=== PATIENT | male | born 1950 | race Caucasian/White ===

== ENCOUNTER 2020-07-02 00:14 | Day surgery (SDC) | payer MEDICARE ==
[~2020-07-02 00:14] MED LIST: BP MED; OXYACE5T PO; RXOXYACE PO
[2020-07-02] MEDS ORDERED: CENTRUM SILVER1 EAC2 PO (11:09)
[2020-07-02] MEDS ORDERED: Prinivil10 MG (11:09)
== END 2020-07-02 11:30 | disposition home or self-care (01) ==
LOC: ATC 00:14
DX: M86.8X7 Other osteomyelitis, ankle and foot (principal); A41.9 Sepsis, unspecified organism; I10 Essential (primary) hypertension; Z20.828 Contact with and (suspected) exposure to other viral communicable diseases; Z87.891 Personal history of nicotine dependence; Z88.0 Allergy status to penicillin; Z79.899 Other long term (current) drug therapy
CPT/HCPCS: 96365; J0696

== ENCOUNTER 2020-07-03 10:23 | Day surgery (SDC) | payer MEDICARE ==
[~2020-07-03 10:23] MED LIST changes: +CENTRUM SILVER1 EAC2 PO; +Prinivil10 MG
== END 2020-07-03 11:30 | disposition home or self-care (01) ==
LOC: ATC 10:23
DX: M86.8X7 Other osteomyelitis, ankle and foot (principal); I10 Essential (primary) hypertension; Z87.891 Personal history of nicotine dependence; Z88.0 Allergy status to penicillin; Z79.899 Other long term (current) drug therapy
CPT/HCPCS: 96365; J0696

== ENCOUNTER 2020-07-04 00:36 | Day surgery (SDC) | payer MEDICARE ==
[2020-07-04 14:15] LABS: Hemoglobin 14.9 g/dL (13.5-17.5); Mean Corpuscular HGB 31.4 pg (26.0-34.0); Mean Corpuscular HGB Conc 33.1 g/dL (31.5-36.5); Mean Corpuscular Volume 95 fL (80-100); Mean Platelet Volume 9.1 fL (9.1-12.4); Platelet Count 426 K/mm3 (150-400); RDW Coefficient Variation 12.2 % (11.7-14.2); RDW Standard Deviation 42.9 fL (35.1-46.3); Red Blood Cell Count 4.74 M/mm3 (4.30-5.90)
[2020-07-04 14:37] LABS: Alanine Aminotransfer (ALT/SGP 89 U/L (12-78); Albumin, Blood 3.1 g/dL (3.4-5.0); Albumin/Globulin Ratio 0.7 (0.8-1.8); Alk Phos 59 U/L (50-136); Anion Gap 8 mmol/L (6-16); Aspartate Aminotrans (AST/SGOT 39 U/L (12-37); Bilirubin, Total 0.4 mg/dL (0.1-1.0); Blood Urea Nitrogen 15 mg/dL (8-24); Bun/Creatinine Ratio 17.8 (12.0-20.0); CO2, Blood 27 mmol/L (21-32); Calcium, Blood 9.1 mg/dL (8.5-10.1); Chloride, Blood 104 mmol/L (98-108); Creatinine, Blood 0.84 mg/dL (0.60-1.20); Globulin, Blood 4.7 g/dL (2.2-4.0); Glomerular Filtration Rate >60 (60-); Glucose, Blood 109 mg/dL (70-99); Potassium, Blood 4.3 mmol/L (3.5-5.5); Sodium, Blood 139 mmol/L (136-145); Total Protein, Blood 7.8 g/dL (6.4-8.2)
[2020-07-04 14:38] LABS: BAND PERCENT MAN 2 % (0-8); BASOPHILS ABSOLUTE MAN 0.11 K/mm3 (0.00-0.23); BASOPHILS PERCENT MAN 1 % (0-2); EOSINOPHILS ABSOLUTE MAN 0.22 K/mm3 (0.00-0.68); EOSINOPHILS PERCENT MAN 2 % (0-6); LYMPHOCYTES ABSOLUTE MAN 2.55 K/mm3 (0.84-5.20); LYMPHOCYTES PERCENT MAN 23 % (21-46); MONOCYTES ABSOLUTE MAN 0.55 K/mm3 (0.16-1.47); MONOCYTES PERCENT MAN 5 % (4-13); MYELOCYTE ABSOLUTE MAN 0.22 K/mm3 (0.00-0.00); MYELOCYTE PERCENT MAN 2 % (0-0); NEUTROPHILS ABSOLUTE MAN 7.43 K/mm3 (1.96-9.15); SEG NEUTROPHILS PERCENT MAN 65 % (41-73); TOTAL CELLS COUNTED 100
[2020-07-05] MEDS ORDERED: CEFTRIAXON2 GM/50 M1 IV (09:39)
== END 2020-07-04 14:22 | disposition home or self-care (01) ==
LOC: ATC 00:36
PROVIDERS: Internal Medicine Infectious Disease
DX: M86.9 Osteomyelitis, unspecified (principal); I10 Essential (primary) hypertension; Z88.0 Allergy status to penicillin; Z79.899 Other long term (current) drug therapy
CPT/HCPCS: 36592; 80053; 85025; 85651; 86140; 96365; J0696

== ENCOUNTER 2020-07-05 00:10 | Day surgery (SDC) | payer MEDICARE ==
[2020-07-05] MEDS ORDERED: CEFTRIAXON2 GM/50 M1 IV (09:39)
== END 2020-07-05 09:32 | disposition home or self-care (01) ==
LOC: ATC 00:10
DX: M86.8X7 Other osteomyelitis, ankle and foot (principal); I10 Essential (primary) hypertension; Z88.0 Allergy status to penicillin; Z79.899 Other long term (current) drug therapy
CPT/HCPCS: 96365; J0696

== ENCOUNTER 2020-07-06 00:12 | Day surgery (SDC) | payer MEDICARE ==
[~2020-07-06 00:12] MED LIST changes: +CEFTRIAXON2 GM/50 M1 IV
== END 2020-07-06 09:25 | disposition home or self-care (01) ==
LOC: ATC 00:12
DX: M86.8X7 Other osteomyelitis, ankle and foot (principal); I10 Essential (primary) hypertension; Z88.0 Allergy status to penicillin; Z79.899 Other long term (current) drug therapy
CPT/HCPCS: 96365; J0696

== ENCOUNTER 2020-07-08 00:10 | Day surgery (SDC) | payer MEDICARE | END 2020-07-08 08:34 | disposition home or self-care (01) | LOC: ATC 00:10 | DX: M86.8X7 Other osteomyelitis, ankle and foot (principal); A41.9 Sepsis, unspecified organism; I10 Essential (primary) hypertension; Z87.891 Personal history of nicotine dependence; Z88.0 Allergy status to penicillin; Z79.899 Other long term (current) drug therapy | CPT/HCPCS: 96365; J0696 ==

== ENCOUNTER 2020-07-09 00:24 | Day surgery (SDC) | payer MEDICARE | END 2020-07-09 10:25 | disposition home or self-care (01) | LOC: ATC 00:24 | DX: A41.9 Sepsis, unspecified organism (principal); M86.8X7 Other osteomyelitis, ankle and foot; I10 Essential (primary) hypertension; Z88.0 Allergy status to penicillin; Z87.891 Personal history of nicotine dependence; Z79.899 Other long term (current) drug therapy | CPT/HCPCS: 96365; J0696 ==

== ENCOUNTER 2020-07-12 08:18 | Day surgery (SDC) | payer MEDICARE | END 2020-07-12 08:58 | disposition home or self-care (01) | LOC: ATC 08:18 | DX: A41.9 Sepsis, unspecified organism (principal); M86.8X7 Other osteomyelitis, ankle and foot; I10 Essential (primary) hypertension; Z79.899 Other long term (current) drug therapy; Z87.891 Personal history of nicotine dependence; Z88.0 Allergy status to penicillin | CPT/HCPCS: 96365; J0696 ==

== ENCOUNTER 2020-07-13 00:52 | Day surgery (SDC) | payer MEDICARE | END 2020-07-13 09:00 | disposition home or self-care (01) | LOC: ATC 00:52 | DX: A41.9 Sepsis, unspecified organism (principal); M86.8X7 Other osteomyelitis, ankle and foot; I10 Essential (primary) hypertension; Z79.899 Other long term (current) drug therapy; Z87.891 Personal history of nicotine dependence; Z88.0 Allergy status to penicillin | CPT/HCPCS: 96365; J0696 ==

== ENCOUNTER 2020-07-14 00:33 | Day surgery (SDC) | payer MEDICARE ==
--- NOTE | 2020-07-14 08:17 | NUR ---
PT AND SPOUSE TO [employer]IES TODAY AND WILL RESUME WC AT HOME. THIS RN CHECKED WITH [employer] TO CONFIRM THIS PLAN. PT TO BE SEEN TOMORROW IN [facility].
== END 2020-07-14 08:15 | disposition home or self-care (01) ==
LOC: ATC 00:33
DX: A41.9 Sepsis, unspecified organism (principal); M86.8X7 Other osteomyelitis, ankle and foot; I10 Essential (primary) hypertension; Z79.899 Other long term (current) drug therapy; Z87.891 Personal history of nicotine dependence; Z88.0 Allergy status to penicillin
CPT/HCPCS: 96365; J0696

== ENCOUNTER 2020-07-15 00:20 | Day surgery (SDC) | payer MEDICARE | END 2020-07-15 08:52 | disposition home or self-care (01) | LOC: ATC 00:20 | DX: A41.9 Sepsis, unspecified organism (principal); M86.8X7 Other osteomyelitis, ankle and foot; I10 Essential (primary) hypertension; Z79.899 Other long term (current) drug therapy; Z20.828 Contact with and (suspected) exposure to other viral communicable diseases; Z87.891 Personal history of nicotine dependence | CPT/HCPCS: 96365; J0696 ==

== ENCOUNTER 2020-07-15 00:35 | Day surgery (SDC) | payer MEDICARE ==
[2020-07-24] MEDS ORDERED: DOCU100 PO (07:47)
== END 2020-07-15 22:48 | disposition home or self-care (01) ==
LOC: WOUND 00:35
DX: L02.612 Cutaneous abscess of left foot (principal)
CPT/HCPCS: G0463

== ENCOUNTER 2020-07-16 00:23 | Day surgery (SDC) | payer MEDICARE | END 2020-07-16 08:06 | disposition home or self-care (01) | LOC: ATC 00:23 | DX: A41.9 Sepsis, unspecified organism (principal); M86.8X7 Other osteomyelitis, ankle and foot; I10 Essential (primary) hypertension; Z87.891 Personal history of nicotine dependence; Z88.0 Allergy status to penicillin; Z79.899 Other long term (current) drug therapy | CPT/HCPCS: 96365; J0696 ==

== ENCOUNTER 2020-07-17 00:39 | Day surgery (SDC) | payer MEDICARE | END 2020-07-17 08:09 | disposition home or self-care (01) | LOC: ATC 00:39 | DX: A41.9 Sepsis, unspecified organism (principal); M86.8X7 Other osteomyelitis, ankle and foot; I10 Essential (primary) hypertension; Z79.899 Other long term (current) drug therapy; Z87.891 Personal history of nicotine dependence; Z88.0 Allergy status to penicillin | CPT/HCPCS: 96365; J0696 ==

== ENCOUNTER 2020-07-18 00:02 | Day surgery (SDC) | payer MEDICARE ==
[2020-07-18 08:41] LABS: BASOPHILS ABSOLUTE AUTO 0.06 K/mm3 (0.00-0.23); BASOPHILS PERCENT AUTO 1 % (0-2); EOSINOPHILS ABSOLUTE AUTO 0.26 K/mm3 (0.00-0.68); EOSINOPHILS PERCENT AUTO 3 % (0-6); Hematocrit 45.8 % (37.0-53.0); Hemoglobin 15.3 g/dL (13.5-17.5); IMMATURE GRAN ABSOLUTE AUTO 0.06 K/mm3 (0.00-0.10); IMMATURE GRAN PERCENT AUTO 1 % (0-1); LYMPHOCYTES ABSOLUTE AUTO 2.42 K/mm3 (0.84-5.20); LYMPHOCYTES PERCENT AUTO 26 % (21-46); MONOCYTES ABSOLUTE AUTO 0.85 K/mm3 (0.16-1.47); MONOCYTES PERCENT AUTO 9 % (4-13); Mean Corpuscular HGB 31.2 pg (26.0-34.0); Mean Corpuscular HGB Conc 33.4 g/dL (31.5-36.5); Mean Corpuscular Volume 94 fL (80-100); Mean Platelet Volume 9.8 fL (9.1-12.4); NEUTROPHILS PERCENT AUTO 61 % (41-73); Platelet Count 262 K/mm3 (150-400); RDW Coefficient Variation 12.4 % (11.7-14.2); RDW Standard Deviation 42.9 fL (35.1-46.3); White Blood Cell Count 9.45 K/mm3 (4.00-11.30)
[2020-07-18 09:05] LABS: Alanine Aminotransfer (ALT/SGP 39 U/L (12-78); Albumin, Blood 3.6 g/dL (3.4-5.0); Albumin/Globulin Ratio 0.9 (0.8-1.8); Alk Phos 51 U/L (50-136); Anion Gap 2 mmol/L (6-16); Aspartate Aminotrans (AST/SGOT 19 U/L (12-37); Bilirubin, Total 0.5 mg/dL (0.1-1.0); Blood Urea Nitrogen 18 mg/dL (8-24); Bun/Creatinine Ratio 24.3 (12.0-20.0); C-REACTIVE PROTEIN, EXT RANGE <0.290 mg/dL (0.000-0.300); CO2, Blood 30 mmol/L (21-32); Calcium, Blood 9.3 mg/dL (8.5-10.1); Chloride, Blood 104 mmol/L (98-108); Creatinine, Blood 0.74 mg/dL (0.60-1.20); Globulin, Blood 4.1 g/dL (2.2-4.0); Glomerular Filtration Rate >60 (60-); Glucose, Blood 105 mg/dL (70-99); Potassium, Blood 4.1 mmol/L (3.5-5.5); Sodium, Blood 136 mmol/L (136-145); Total Protein, Blood 7.7 g/dL (6.4-8.2)
--- NOTE | 2020-07-18 09:36 | NUR ---
LAB RESULTS FROM TODAY FAXED TO DR. HIDALGO'S OFFICE.
== END 2020-07-18 08:10 | disposition home or self-care (01) ==
LOC: ATC 00:02
PROVIDERS: Internal Medicine Infectious Disease
DX: A41.9 Sepsis, unspecified organism (principal); M86.8X7 Other osteomyelitis, ankle and foot; I10 Essential (primary) hypertension; Z88.0 Allergy status to penicillin; Z87.891 Personal history of nicotine dependence; Z79.899 Other long term (current) drug therapy
CPT/HCPCS: 80053; 85025; 85651; 86140; J0696

== ENCOUNTER 2020-07-19 01:40 | Day surgery (SDC) | payer MEDICARE | END 2020-07-19 08:08 | disposition home or self-care (01) | LOC: ATC 01:40 | DX: A41.9 Sepsis, unspecified organism (principal); M86.8X7 Other osteomyelitis, ankle and foot; I10 Essential (primary) hypertension; Z88.0 Allergy status to penicillin; Z87.891 Personal history of nicotine dependence; Z79.899 Other long term (current) drug therapy; Z20.828 Contact with and (suspected) exposure to other viral communicable diseases | CPT/HCPCS: 96365; J0696 ==

== ENCOUNTER 2020-07-20 00:01 | Day surgery (SDC) | payer MEDICARE | END 2020-07-20 08:10 | disposition home or self-care (01) | LOC: ATC 00:01 | DX: A41.9 Sepsis, unspecified organism (principal); M86.8X7 Other osteomyelitis, ankle and foot; I10 Essential (primary) hypertension; Z87.891 Personal history of nicotine dependence; Z88.0 Allergy status to penicillin; Z79.899 Other long term (current) drug therapy | CPT/HCPCS: J0696 ==

== ENCOUNTER 2020-07-21 00:07 | Day surgery (SDC) | payer MEDICARE | END 2020-07-21 08:09 | disposition home or self-care (01) | LOC: ATC 00:07 | DX: A41.9 Sepsis, unspecified organism (principal); M86.8X7 Other osteomyelitis, ankle and foot; Z87.891 Personal history of nicotine dependence; I10 Essential (primary) hypertension; Z79.899 Other long term (current) drug therapy; Z20.828 Contact with and (suspected) exposure to other viral communicable diseases | CPT/HCPCS: J0696 ==

== ENCOUNTER 2020-07-22 00:02 | Day surgery (SDC) | payer MEDICARE ==
[2020-07-24] MEDS ORDERED: DOCU100 PO (07:47)
== END 2020-07-22 08:20 | disposition home or self-care (01) ==
LOC: ATC 00:02
DX: A41.9 Sepsis, unspecified organism (principal); M86.8X7 Other osteomyelitis, ankle and foot; I10 Essential (primary) hypertension; Z87.891 Personal history of nicotine dependence; Z20.828 Contact with and (suspected) exposure to other viral communicable diseases; Z88.0 Allergy status to penicillin; Z79.899 Other long term (current) drug therapy
CPT/HCPCS: 96365; J0696

== ENCOUNTER 2020-07-22 00:09 | Day surgery (SDC) | payer MEDICARE ==
[2020-07-24] MEDS ORDERED: DOCU100 PO (07:47)
== END 2020-07-22 22:48 | disposition home or self-care (01) ==
LOC: WOUND 00:09
DX: L02.612 Cutaneous abscess of left foot (principal)
CPT/HCPCS: G0463

== ENCOUNTER 2020-07-23 00:11 | Day surgery (SDC) | payer MEDICARE ==
[2020-07-24] MEDS ORDERED: DOCU100 PO (07:47)
== END 2020-07-23 08:09 | disposition home or self-care (01) ==
LOC: ATC 00:11
DX: A41.9 Sepsis, unspecified organism (principal); M86.8X7 Other osteomyelitis, ankle and foot; I10 Essential (primary) hypertension; Z79.899 Other long term (current) drug therapy; Z87.891 Personal history of nicotine dependence; Z88.0 Allergy status to penicillin
CPT/HCPCS: 96365; J0696

== ENCOUNTER 2020-07-24 00:01 | Day surgery (SDC) | payer MEDICARE | END 2020-07-24 08:06 | disposition home or self-care (01) | LOC: ATC 00:01 | DX: A41.9 Sepsis, unspecified organism (principal); M86.8X7 Other osteomyelitis, ankle and foot; I10 Essential (primary) hypertension; Z79.899 Other long term (current) drug therapy; Z20.828 Contact with and (suspected) exposure to other viral communicable diseases; Z87.891 Personal history of nicotine dependence; Z88.0 Allergy status to penicillin ==

== ENCOUNTER 2020-07-25 00:10 | Day surgery (SDC) | payer MEDICARE | END 2020-07-25 08:19 | disposition home or self-care (01) | LOC: ATC 00:10 | DX: A41.9 Sepsis, unspecified organism (principal); M86.8X7 Other osteomyelitis, ankle and foot; I10 Essential (primary) hypertension; Z79.899 Other long term (current) drug therapy; Z20.828 Contact with and (suspected) exposure to other viral communicable diseases; Z87.891 Personal history of nicotine dependence ==

== ENCOUNTER 2020-07-25 00:41 | Day surgery (SDC) | payer MEDICARE ==
[~2020-07-25 00:41] MED LIST changes: +DOCU100 PO
== END 2020-07-25 23:08 | disposition home or self-care (01) ==
LOC: WOUND 00:41
DX: T81.89XA Other complications of procedures, not elsewhere classified, initial encounter (principal); L02.612 Cutaneous abscess of left foot; I96 Gangrene, not elsewhere classified; L97.522 Non-pressure chronic ulcer of other part of left foot with fat layer exposed; I10 Essential (primary) hypertension; E78.5 Hyperlipidemia, unspecified; M54.9 Dorsalgia, unspecified; H26.9 Unspecified cataract; Z88.0 Allergy status to penicillin; Z79.899 Other long term (current) drug therapy; Z90.49 Acquired absence of other specified parts of digestive tract; Y83.8 Other surgical procedures as the cause of abnormal reaction of the patient, or of later complication, without mention of misadventure at the time of the procedure

== ENCOUNTER 2020-07-28 00:09 | Day surgery (SDC) | payer MEDICARE | END 2020-07-28 08:06 | disposition home or self-care (01) | LOC: ATC 00:09 | DX: A41.9 Sepsis, unspecified organism (principal); M86.8X7 Other osteomyelitis, ankle and foot; I10 Essential (primary) hypertension; L03.116 Cellulitis of left lower limb; Z88.0 Allergy status to penicillin; Z87.891 Personal history of nicotine dependence; Z79.899 Other long term (current) drug therapy | CPT/HCPCS: 96365; J0696 ==

== ENCOUNTER 2020-07-28 00:24 | Day surgery (SDC) | payer MEDICARE | END 2020-07-28 23:10 | disposition home or self-care (01) | LOC: WOUND 00:24 | DX: T81.89XA Other complications of procedures, not elsewhere classified, initial encounter (principal); I96 Gangrene, not elsewhere classified; L02.612 Cutaneous abscess of left foot; I10 Essential (primary) hypertension; E78.5 Hyperlipidemia, unspecified; H26.9 Unspecified cataract; Z90.49 Acquired absence of other specified parts of digestive tract; Z88.0 Allergy status to penicillin; Z79.899 Other long term (current) drug therapy; Y83.8 Other surgical procedures as the cause of abnormal reaction of the patient, or of later complication, without mention of misadventure at the time of the procedure ==

== ENCOUNTER 2020-07-29 05:17 | Day surgery (SDC) | payer MEDICARE | END 2020-07-29 08:08 | disposition home or self-care (01) | LOC: ATC 05:17 | DX: A41.9 Sepsis, unspecified organism (principal); M86.8X7 Other osteomyelitis, ankle and foot; L03.116 Cellulitis of left lower limb; I10 Essential (primary) hypertension; Z79.899 Other long term (current) drug therapy; Z20.828 Contact with and (suspected) exposure to other viral communicable diseases; Z87.891 Personal history of nicotine dependence; Z88.0 Allergy status to penicillin | CPT/HCPCS: 96365; J0696 ==

== ENCOUNTER 2020-07-30 00:04 | Day surgery (SDC) | payer MEDICARE | END 2020-07-30 08:26 | disposition home or self-care (01) | LOC: ATC 00:04 | DX: A41.9 Sepsis, unspecified organism (principal); M86.8X7 Other osteomyelitis, ankle and foot; L03.116 Cellulitis of left lower limb; I10 Essential (primary) hypertension; R19.7 Diarrhea, unspecified; G47.00 Insomnia, unspecified; Z79.899 Other long term (current) drug therapy; Z87.891 Personal history of nicotine dependence | CPT/HCPCS: 96365; J0696 ==

== ENCOUNTER 2020-07-31 00:27 | Day surgery (SDC) | payer MEDICARE ==
[2020-08-01] MEDS ORDERED: ROSU10TA PO (08:05)
== END 2020-07-31 08:10 | disposition home or self-care (01) ==
LOC: ATC 00:27
DX: A41.9 Sepsis, unspecified organism (principal); M86.8X7 Other osteomyelitis, ankle and foot; L03.116 Cellulitis of left lower limb; I10 Essential (primary) hypertension; Z79.899 Other long term (current) drug therapy; Z20.828 Contact with and (suspected) exposure to other viral communicable diseases; Z87.891 Personal history of nicotine dependence; Z88.0 Allergy status to penicillin
CPT/HCPCS: 96365; J0696

== ENCOUNTER 2020-08-01 01:50 | Day surgery (SDC) | payer MEDICARE ==
[2020-08-01] MEDS ORDERED: ROSU10TA PO (08:05)
[2020-08-01 08:10] LABS: BASOPHILS ABSOLUTE AUTO 0.05 K/mm3 (0.00-0.23); BASOPHILS PERCENT AUTO 1 % (0-2); EOSINOPHILS PERCENT AUTO 2 % (0-6); Hemoglobin 14.9 g/dL (13.5-17.5); IMMATURE GRAN ABSOLUTE AUTO 0.07 K/mm3 (0.00-0.10); IMMATURE GRAN PERCENT AUTO 1 % (0-1); LYMPHOCYTES ABSOLUTE AUTO 2.26 K/mm3 (0.84-5.20); LYMPHOCYTES PERCENT AUTO 24 % (21-46); MONOCYTES ABSOLUTE AUTO 0.92 K/mm3 (0.16-1.47); MONOCYTES PERCENT AUTO 10 % (4-13); Mean Corpuscular HGB 30.4 pg (26.0-34.0); Mean Corpuscular HGB Conc 32.4 g/dL (31.5-36.5); Mean Corpuscular Volume 94 fL (80-100); Mean Platelet Volume 9.2 fL (9.1-12.4); NEUTROPHILS ABSOLUTE AUTO 5.92 K/mm3 (1.96-9.15); NEUTROPHILS PERCENT AUTO 63 % (41-73); Platelet Count 287 K/mm3 (150-400); RDW Coefficient Variation 12.4 % (11.7-14.2); RDW Standard Deviation 42.9 fL (35.1-46.3); White Blood Cell Count 9.42 K/mm3 (4.00-11.30)
[2020-08-01 08:30] LABS: Alanine Aminotransfer (ALT/SGP 24 U/L (12-78); Albumin, Blood 3.8 g/dL (3.4-5.0); Alk Phos 49 U/L (50-136); Anion Gap 6 mmol/L (6-16); Aspartate Aminotrans (AST/SGOT 12 U/L (12-37); Bilirubin, Total 0.4 mg/dL (0.1-1.0); Blood Urea Nitrogen 18 mg/dL (8-24); Bun/Creatinine Ratio 23.9 (12.0-20.0); C-REACTIVE PROTEIN, EXT RANGE <0.290 mg/dL (0.000-0.300); CO2, Blood 28 mmol/L (21-32); Calcium, Blood 9.3 mg/dL (8.5-10.1); Chloride, Blood 104 mmol/L (98-108); Creatinine, Blood 0.75 mg/dL (0.60-1.20); Globulin, Blood 3.7 g/dL (2.2-4.0); Glomerular Filtration Rate >60 (60-); Glucose, Blood 124 mg/dL (70-99); Potassium, Blood 3.9 mmol/L (3.5-5.5); Sodium, Blood 138 mmol/L (136-145); Total Protein, Blood 7.5 g/dL (6.4-8.2)
== END 2020-08-01 08:13 | disposition home or self-care (01) ==
LOC: ATC 01:50
PROVIDERS: Internal Medicine
DX: A41.9 Sepsis, unspecified organism (principal); M86.8X7 Other osteomyelitis, ankle and foot; I10 Essential (primary) hypertension; L03.116 Cellulitis of left lower limb; Z88.0 Allergy status to penicillin; Z87.891 Personal history of nicotine dependence; Z79.899 Other long term (current) drug therapy
CPT/HCPCS: 80053; 85025; 85651; 86140; 96365; J0696

== ENCOUNTER 2020-08-01 02:04 | Day surgery (SDC) | payer MEDICARE ==
[2020-08-01] MEDS ORDERED: ROSU10TA PO (08:05)
== END 2020-08-01 22:39 | disposition home or self-care (01) ==
LOC: WOUND 02:04
DX: L02.612 Cutaneous abscess of left foot (principal); I10 Essential (primary) hypertension; E78.5 Hyperlipidemia, unspecified; Z79.899 Other long term (current) drug therapy

== ENCOUNTER 2020-08-02 00:33 | Day surgery (SDC) | payer MEDICARE ==
[~2020-08-02 00:33] MED LIST changes: +ROSU10TA PO
== END 2020-08-02 07:56 | disposition home or self-care (01) ==
LOC: ATC 00:33
DX: A41.9 Sepsis, unspecified organism (principal); L03.116 Cellulitis of left lower limb; L02.612 Cutaneous abscess of left foot; M86.272 Subacute osteomyelitis, left ankle and foot; I10 Essential (primary) hypertension; Z79.2 Long term (current) use of antibiotics; Z79.899 Other long term (current) drug therapy; Z88.0 Allergy status to penicillin; Z87.891 Personal history of nicotine dependence
CPT/HCPCS: 96365; J0696

== ENCOUNTER 2020-08-03 01:52 | Day surgery (SDC) | payer MEDICARE | END 2020-08-03 08:03 | disposition home or self-care (01) | LOC: ATC 01:52 | DX: A41.9 Sepsis, unspecified organism (principal); L02.612 Cutaneous abscess of left foot; M86.8X7 Other osteomyelitis, ankle and foot; I10 Essential (primary) hypertension; Z79.899 Other long term (current) drug therapy; Z20.828 Contact with and (suspected) exposure to other viral communicable diseases; Z87.891 Personal history of nicotine dependence; Z88.0 Allergy status to penicillin | CPT/HCPCS: 96365; J0696 ==

== ENCOUNTER 2020-08-04 07:48 | Day surgery (SDC) | payer MEDICARE | END 2020-08-04 08:32 | disposition home or self-care (01) | LOC: ATC 07:48 | DX: A41.9 Sepsis, unspecified organism (principal); M86.8X7 Other osteomyelitis, ankle and foot; L03.116 Cellulitis of left lower limb; I10 Essential (primary) hypertension; Z79.899 Other long term (current) drug therapy; Z20.828 Contact with and (suspected) exposure to other viral communicable diseases; Z87.891 Personal history of nicotine dependence; Z88.0 Allergy status to penicillin | CPT/HCPCS: 96365; J0696 ==

== ENCOUNTER 2020-08-05 01:15 | Day surgery (SDC) | payer MEDICARE | END 2020-08-05 08:06 | disposition home or self-care (01) | LOC: ATC 01:15 | DX: A41.9 Sepsis, unspecified organism (principal); M86.8X7 Other osteomyelitis, ankle and foot; L03.116 Cellulitis of left lower limb; I10 Essential (primary) hypertension; Z87.891 Personal history of nicotine dependence; Z88.0 Allergy status to penicillin; Z79.899 Other long term (current) drug therapy | CPT/HCPCS: 96365; J0696 ==

== ENCOUNTER 2020-08-06 00:36 | Day surgery (SDC) | payer MEDICARE | END 2020-08-06 08:05 | disposition home or self-care (01) | LOC: ATC 00:36 | DX: A41.9 Sepsis, unspecified organism (principal); M86.8X7 Other osteomyelitis, ankle and foot; L03.116 Cellulitis of left lower limb; I10 Essential (primary) hypertension; Z79.899 Other long term (current) drug therapy; Z20.828 Contact with and (suspected) exposure to other viral communicable diseases; Z87.891 Personal history of nicotine dependence | CPT/HCPCS: 96365; J0696 ==

== ENCOUNTER 2020-08-07 00:07 | Day surgery (SDC) | payer MEDICARE | END 2020-08-07 08:05 | disposition home or self-care (01) | LOC: ATC 00:07 | DX: A41.9 Sepsis, unspecified organism (principal); M86.8X7 Other osteomyelitis, ankle and foot; L03.116 Cellulitis of left lower limb; I10 Essential (primary) hypertension; Z79.899 Other long term (current) drug therapy; Z87.891 Personal history of nicotine dependence; Z88.0 Allergy status to penicillin | CPT/HCPCS: 96365; J0696 ==

== ENCOUNTER 2020-08-08 01:15 | Day surgery (SDC) | payer MEDICARE ==
[2020-08-08 08:43] LABS: BASOPHILS ABSOLUTE AUTO 0.05 K/mm3 (0.00-0.23); BASOPHILS PERCENT AUTO 1 % (0-2); EOSINOPHILS ABSOLUTE AUTO 0.16 K/mm3 (0.00-0.68); EOSINOPHILS PERCENT AUTO 2 % (0-6); Hematocrit 44.6 % (37.0-53.0); Hemoglobin 15.1 g/dL (13.5-17.5); IMMATURE GRAN ABSOLUTE AUTO 0.07 K/mm3 (0.00-0.10); IMMATURE GRAN PERCENT AUTO 1 % (0-1); LYMPHOCYTES ABSOLUTE AUTO 2.19 K/mm3 (0.84-5.20); LYMPHOCYTES PERCENT AUTO 21 % (21-46); MONOCYTES PERCENT AUTO 10 % (4-13); Mean Corpuscular HGB 31.9 pg (26.0-34.0); Mean Corpuscular HGB Conc 33.9 g/dL (31.5-36.5); Mean Corpuscular Volume 94 fL (80-100); Mean Platelet Volume 9.7 fL (9.1-12.4); NEUTROPHILS ABSOLUTE AUTO 6.74 K/mm3 (1.96-9.15); NEUTROPHILS PERCENT AUTO 66 % (41-73); Platelet Count 279 K/mm3 (150-400); RDW Coefficient Variation 12.4 % (11.7-14.2); RDW Standard Deviation 43.2 fL (35.1-46.3); Red Blood Cell Count 4.74 M/mm3 (4.30-5.90); White Blood Cell Count 10.21 K/mm3 (4.00-11.30)
[2020-08-08 09:05] LABS: Alanine Aminotransfer (ALT/SGP 25 U/L (12-78); Albumin, Blood 3.7 g/dL (3.4-5.0); Alk Phos 49 U/L (50-136); Anion Gap 6 mmol/L (6-16); Aspartate Aminotrans (AST/SGOT 13 U/L (12-37); Bilirubin, Total 0.4 mg/dL (0.1-1.0); Blood Urea Nitrogen 22 mg/dL (8-24); Bun/Creatinine Ratio 31.4 (12.0-20.0); C-REACTIVE PROTEIN, EXT RANGE 0.372 mg/dL (0.000-0.300); CO2, Blood 27 mmol/L (21-32); Calcium, Blood 8.9 mg/dL (8.5-10.1); Chloride, Blood 106 mmol/L (98-108); Globulin, Blood 3.8 g/dL (2.2-4.0); Glomerular Filtration Rate >60 (60-); Glucose, Blood 129 mg/dL (70-99); Sodium, Blood 139 mmol/L (136-145); Total Protein, Blood 7.5 g/dL (6.4-8.2)
== END 2020-08-08 08:10 | disposition home or self-care (01) ==
LOC: ATC 01:15
PROVIDERS: Internal Medicine Infectious Disease
DX: A41.9 Sepsis, unspecified organism (principal); L02.612 Cutaneous abscess of left foot; M86.8X7 Other osteomyelitis, ankle and foot; I10 Essential (primary) hypertension; Z79.899 Other long term (current) drug therapy; Z20.828 Contact with and (suspected) exposure to other viral communicable diseases; Z87.891 Personal history of nicotine dependence
CPT/HCPCS: 80053; 85025; 85651; 86140; 96365; J0696

== ENCOUNTER 2020-08-08 01:57 | Day surgery (SDC) | payer MEDICARE | END 2020-08-08 22:46 | disposition home or self-care (01) | LOC: WOUND 01:57 | DX: L02.612 Cutaneous abscess of left foot (principal); L97.522 Non-pressure chronic ulcer of other part of left foot with fat layer exposed; I10 Essential (primary) hypertension; E78.5 Hyperlipidemia, unspecified; Z79.899 Other long term (current) drug therapy ==

== ENCOUNTER 2020-08-09 00:05 | Day surgery (SDC) | payer MEDICARE | END 2020-08-09 08:10 | disposition home or self-care (01) | LOC: ATC 00:05 | DX: L02.612 Cutaneous abscess of left foot (principal); M86.272 Subacute osteomyelitis, left ankle and foot; I10 Essential (primary) hypertension; Z79.2 Long term (current) use of antibiotics; Z79.899 Other long term (current) drug therapy; Z88.0 Allergy status to penicillin; Z87.891 Personal history of nicotine dependence | CPT/HCPCS: 96365; J0696 ==

== ENCOUNTER 2020-08-10 00:10 | Day surgery (SDC) | payer MEDICARE | END 2020-08-10 08:05 | disposition home or self-care (01) | LOC: ATC 00:10 | DX: A41.9 Sepsis, unspecified organism (principal); M86.8X7 Other osteomyelitis, ankle and foot; L03.116 Cellulitis of left lower limb; I10 Essential (primary) hypertension; Z79.899 Other long term (current) drug therapy; Z20.828 Contact with and (suspected) exposure to other viral communicable diseases; Z87.891 Personal history of nicotine dependence | CPT/HCPCS: 96365; J0696 ==

== ENCOUNTER 2020-08-11 00:19 | Day surgery (SDC) | payer MEDICARE | END 2020-08-11 08:10 | disposition home or self-care (01) | LOC: ATC 00:19 | DX: A41.9 Sepsis, unspecified organism (principal); L03.116 Cellulitis of left lower limb; M86.8X7 Other osteomyelitis, ankle and foot; I10 Essential (primary) hypertension; Z79.899 Other long term (current) drug therapy; Z20.828 Contact with and (suspected) exposure to other viral communicable diseases; Z87.891 Personal history of nicotine dependence | CPT/HCPCS: 96365; J0696 ==

== ENCOUNTER 2020-08-12 00:30 | Day surgery (SDC) | payer MEDICARE | END 2020-08-12 08:01 | disposition home or self-care (01) | LOC: ATC 00:30 | DX: L02.612 Cutaneous abscess of left foot (principal); M86.272 Subacute osteomyelitis, left ankle and foot; I10 Essential (primary) hypertension; Z79.2 Long term (current) use of antibiotics; Z79.899 Other long term (current) drug therapy; Z87.891 Personal history of nicotine dependence; Z88.0 Allergy status to penicillin | CPT/HCPCS: 96365; J0696 ==

== ENCOUNTER 2020-08-13 00:34 | Day surgery (SDC) | payer MEDICARE | END 2020-08-13 08:09 | disposition home or self-care (01) | LOC: ATC 00:34 | DX: A41.9 Sepsis, unspecified organism (principal); M86.8X7 Other osteomyelitis, ankle and foot; L03.116 Cellulitis of left lower limb; I10 Essential (primary) hypertension; Z79.899 Other long term (current) drug therapy; Z20.828 Contact with and (suspected) exposure to other viral communicable diseases; Z87.891 Personal history of nicotine dependence | CPT/HCPCS: 96365; J0696 ==

== ENCOUNTER 2020-08-14 00:37 | Day surgery (SDC) | payer MEDICARE ==
--- NOTE | 2020-08-14 10:07 | NUR ---
DOWNTIME CHARTING DONE.
== END 2020-08-14 08:20 | disposition home or self-care (01) ==
LOC: ATC 00:37
DX: A41.9 Sepsis, unspecified organism (principal); L02.612 Cutaneous abscess of left foot; L03.116 Cellulitis of left lower limb; I10 Essential (primary) hypertension; Z79.899 Other long term (current) drug therapy; Z20.828 Contact with and (suspected) exposure to other viral communicable diseases; Z87.891 Personal history of nicotine dependence; Z88.0 Allergy status to penicillin; M86.8X7 Other osteomyelitis, ankle and foot
CPT/HCPCS: 96365; J0696

== ENCOUNTER 2020-08-15 02:00 | Day surgery (SDC) | payer MEDICARE ==
[2020-08-15 08:56] LABS: BASOPHILS ABSOLUTE AUTO 0.06 K/mm3 (0.00-0.23); BASOPHILS PERCENT AUTO 1 % (0-2); EOSINOPHILS PERCENT AUTO 3 % (0-6); Hematocrit 45.3 % (37.0-53.0); IMMATURE GRAN ABSOLUTE AUTO 0.05 K/mm3 (0.00-0.10); IMMATURE GRAN PERCENT AUTO 1 % (0-1); LYMPHOCYTES PERCENT AUTO 27 % (21-46); MONOCYTES ABSOLUTE AUTO 0.76 K/mm3 (0.16-1.47); MONOCYTES PERCENT AUTO 9 % (4-13); Mean Corpuscular HGB Conc 33.1 g/dL (31.5-36.5); Mean Corpuscular Volume 94 fL (80-100); Mean Platelet Volume 9.9 fL (9.1-12.4); NEUTROPHILS ABSOLUTE AUTO 4.85 K/mm3 (1.96-9.15); NEUTROPHILS PERCENT AUTO 60 % (41-73); Platelet Count 269 K/mm3 (150-400); RDW Coefficient Variation 12.4 % (11.7-14.2); RDW Standard Deviation 43.1 fL (35.1-46.3); Red Blood Cell Count 4.84 M/mm3 (4.30-5.90); White Blood Cell Count 8.12 K/mm3 (4.00-11.30)
[2020-08-15 09:14] LABS: Alanine Aminotransfer (ALT/SGP 24 U/L (12-78); Albumin, Blood 3.8 g/dL (3.4-5.0); Albumin/Globulin Ratio 1.1 (0.8-1.8); Alk Phos 45 U/L (50-136); Anion Gap 6 mmol/L (6-16); Aspartate Aminotrans (AST/SGOT 15 U/L (12-37); Bilirubin, Total 0.4 mg/dL (0.1-1.0); Blood Urea Nitrogen 21 mg/dL (8-24); C-REACTIVE PROTEIN, EXT RANGE 0.328 mg/dL (0.000-0.300); CO2, Blood 29 mmol/L (21-32); Calcium, Blood 9.1 mg/dL (8.5-10.1); Chloride, Blood 105 mmol/L (98-108); Creatinine, Blood 0.75 mg/dL (0.60-1.20); Globulin, Blood 3.6 g/dL (2.2-4.0); Glomerular Filtration Rate >60 (60-); Glucose, Blood 133 mg/dL (70-99); Potassium, Blood 3.9 mmol/L (3.5-5.5); Sodium, Blood 140 mmol/L (136-145); Total Protein, Blood 7.4 g/dL (6.4-8.2)
== END 2020-08-15 09:47 | disposition home or self-care (01) ==
LOC: ATC 02:00
PROVIDERS: Nurse Practitioner Family
DX: A41.9 Sepsis, unspecified organism (principal); M86.272 Subacute osteomyelitis, left ankle and foot; L03.116 Cellulitis of left lower limb; L02.612 Cutaneous abscess of left foot; I10 Essential (primary) hypertension; Z79.2 Long term (current) use of antibiotics; Z79.899 Other long term (current) drug therapy; Z87.891 Personal history of nicotine dependence; Z88.0 Allergy status to penicillin
CPT/HCPCS: 36592; 80053; 85025; 85651; 86140; 96365; 99211; J0696

== ENCOUNTER 2020-08-15 02:14 | Day surgery (SDC) | payer MEDICARE | END 2020-08-15 23:07 | disposition home or self-care (01) | LOC: WOUND 02:14 | DX: L02.612 Cutaneous abscess of left foot (principal); L97.522 Non-pressure chronic ulcer of other part of left foot with fat layer exposed; I10 Essential (primary) hypertension; E78.5 Hyperlipidemia, unspecified; Z79.899 Other long term (current) drug therapy ==

== ENCOUNTER 2020-08-22 01:13 | Day surgery (SDC) | payer MEDICARE | END 2020-08-22 23:05 | disposition home or self-care (01) | LOC: WOUND 01:13 | DX: L97.522 Non-pressure chronic ulcer of other part of left foot with fat layer exposed (principal); L02.612 Cutaneous abscess of left foot; I10 Essential (primary) hypertension; E78.5 Hyperlipidemia, unspecified; Z79.899 Other long term (current) drug therapy ==

== ENCOUNTER 2020-08-29 00:49 | Day surgery (SDC) | payer MEDICARE | END 2020-08-29 23:15 | disposition home or self-care (01) | LOC: WOUND 00:49 | DX: L97.522 Non-pressure chronic ulcer of other part of left foot with fat layer exposed (principal); L02.612 Cutaneous abscess of left foot ==

== ENCOUNTER 2020-09-05 00:10 | Day surgery (SDC) | payer MEDICARE | END 2020-09-05 22:55 | disposition home or self-care (01) | LOC: WOUND 00:10 | DX: T81.31XA Disruption of external operation (surgical) wound, not elsewhere classified, initial encounter (principal); L97.425 Non-pressure chronic ulcer of left heel and midfoot with muscle involvement without evidence of necrosis; I10 Essential (primary) hypertension; E78.5 Hyperlipidemia, unspecified; M54.9 Dorsalgia, unspecified; H26.9 Unspecified cataract; Z88.0 Allergy status to penicillin; Z79.899 Other long term (current) drug therapy; Y83.8 Other surgical procedures as the cause of abnormal reaction of the patient, or of later complication, without mention of misadventure at the time of the procedure ==

== ENCOUNTER 2020-09-12 00:42 | Day surgery (SDC) | payer MEDICARE | END 2020-09-12 23:04 | disposition home or self-care (01) | LOC: WOUND 00:42 | DX: L97.421 Non-pressure chronic ulcer of left heel and midfoot limited to breakdown of skin (principal); L02.612 Cutaneous abscess of left foot; T81.31XD Disruption of external operation (surgical) wound, not elsewhere classified, subsequent encounter; I10 Essential (primary) hypertension; M54.9 Dorsalgia, unspecified; E78.5 Hyperlipidemia, unspecified; H26.9 Unspecified cataract; Z79.899 Other long term (current) drug therapy; Y83.8 Other surgical procedures as the cause of abnormal reaction of the patient, or of later complication, without mention of misadventure at the time of the procedure | CPT/HCPCS: G0463 ==

== ENCOUNTER 2022-08-05 06:46 | Day surgery (SDC) | payer MEDICARE ==
[~2022-08-05] VITALS: Ht 175.3 cm; Wt 80.3 kg
[~2022-08-05 06:46] MED LIST changes: +Pravastatin Sod40 MG PO
--- NOTE | 2022-08-05 07:11 | NUR ---
08/05/22 0711 Luana Davila RIGHT EYE@0700 JOAN RIGHT EYE AT 0701 BY [facility]. TRICIAG
== END 2022-08-05 08:40 | disposition home or self-care (01) ==
LOC: ORSCSDS 06:46
PROVIDERS: Ophthalmology
PROC: 08RJ3JZ Replacement of Right Lens with Synthetic Substitute, Percutaneous Approach (ICD-10-PCS; principal; 2022-08-05 08:00)
DX: H25.13 Age-related nuclear cataract, bilateral (principal); H18.519 Endothelial corneal dystrophy, unspecified eye; I10 Essential (primary) hypertension; Z79.899 Other long term (current) drug therapy; Z87.891 Personal history of nicotine dependence
CPT/HCPCS: J2001; J2250; J3010; J3301; J7040; V2632

== ENCOUNTER 2022-10-14 11:39 | Day surgery (SDC) | payer MEDICARE ==
[~2022-10-14] VITALS: Ht 175.3 cm; Wt 79.5 kg
== END 2022-10-14 14:15 | disposition home or self-care (01) ==
LOC: ORSCSDS 11:39
PROVIDERS: Surgery
PROC: 0DBP8ZX Excision of Rectum, Via Natural or Artificial Opening Endoscopic, Diagnostic (ICD-10-PCS; principal; 2022-10-14 13:30)
PROC: 0DBK8ZX Excision of Ascending Colon, Via Natural or Artificial Opening Endoscopic, Diagnostic (ICD-10-PCS; principal; 2022-10-14 13:30)
DX: Z12.11 Encounter for screening for malignant neoplasm of colon (principal); D12.2 Benign neoplasm of ascending colon; K62.1 Rectal polyp; I10 Essential (primary) hypertension; E78.5 Hyperlipidemia, unspecified; Z79.899 Other long term (current) drug therapy
CPT/HCPCS: 88305; J2704; J7120